=== PATIENT | male | born 1990 | race Caucasian/White ===

== ENCOUNTER 2017-10-10 22:11 | Emergency (ER) | payer OTHER ==
[2017-10-10 22:18] VITALS: BP 140/89; BMI 28.2
[2017-10-10] MEDS ORDERED: FUL-GLO STRIP ONE (22:23)
[2017-10-10] MEDS ORDERED: TETRACAINE HCL AFFEYE ONE (23:00)
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
== END 2017-10-10 23:35 | disposition home or self-care (01) ==
LOC: ER 22:28
DX: S05.01XA Injury of conjunctiva and corneal abrasion without foreign body, right eye, initial encounter (principal); T15.91XD Foreign body on external eye, part unspecified, right eye, subsequent encounter; Y92.69 Other specified industrial and construction area as the place of occurrence of the external cause
CPT/HCPCS: 99282

== ENCOUNTER 2018-04-01 23:17 | Emergency (ER) | payer SELFPAY ==
[2018-04-01 23:23] VITALS: BP 129/60; BMI 29.2
[2018-04-01] MEDS ORDERED: TETRACAINE HCL ONE (23:50)
[2018-04-01] MEDS ORDERED: FUL-GLO STRIP ONE (23:51)
[2018-04-01] MEDS ORDERED: TETRACAINE HCL AFFEYE ONE (23:52)
[2018-04-01] MEDS ORDERED: FUL-GLO STRIP EACHEYE ONE (23:53)
[2018-04-01] MEDS ORDERED: CYCLOGYL 1% ONE (23:59)
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
[2018-04-02] MEDS ORDERED: CYCLOGYL 1% OPHTH 1 DOSE LEFTEYE PRN (00:12)
[2018-04-02] MEDS ORDERED: ILOTYCIN OPHTH OINT EACHEYE ONE (00:30)
[2018-04-02] MEDS ORDERED: ILOTYCIN OPHTH OINT ONE (00:34)
== END 2018-04-02 00:37 | disposition home or self-care (01) ==
LOC: ER 23:17
DX: S05.02XA Injury of conjunctiva and corneal abrasion without foreign body, left eye, initial encounter (principal); Y33.XXXA Other specified events, undetermined intent, initial encounter
CPT/HCPCS: 99282; 99283